=== PATIENT | female | born 1935 | race African-American/Black ===

== ENCOUNTER 2024-03-02 06:42 | Inpatient (IN) | payer OTHER ==
[~2024-03-02] VITALS: Ht 149.9 cm; Wt 61.6 kg
[2024-03-02 07:17] VITALS: PULSE 89; RESP 17; O2SAT 95
[2024-03-02] MEDS: SODIUM CHLORIDE 0.9% 1,000 ML IV ONE (07:30)
[2024-03-02] MEDS: SODIUM CHLORIDE 0.9% 500 ML IVB ONE (08:12)
[2024-03-02 08:22] LABS: Basophils # (auto) 0 10 ^3/uL (0-0.2); Basophils % (auto) 0.6 % (0.0-2.0); Eosinophils # (auto) 0 10 ^3/uL (0-0.8); Eosinophils % (auto) 0.6 % (0.0-7.0); Hematocrit 32.6 % (36.0-46.0); Hemoglobin 11.1 g/dL (12.2-16.2); Lymphocytes # (auto) 0.8 10 ^3/uL (0.4-5.4); Lymphocytes % (auto) 15.3 % (10.0-50.0); Mean Corpuscular Hemoglobin 32.9 pg (28.0-32.0); Mean Corpuscular Hgb Conc. 33.9 g/dL (32.0-36.0); Mean Corpuscular Volume 96.9 fL (80.0-100.0); Monocytes # (auto) 0.5 10 ^3/uL (0-1.3); Monocytes % (auto) 10.1 % (0.0-12.0); Neutrophils % (auto) 73.4 % (37.0-80.0); Red Blood Cells 3.36 10^6/uL (4.0-5.20); Red Cell Distribution Width 14.4 % (11.8-14.3); White Blood Cell 5.4 10^3/uL (4.4-10.8)
[2024-03-02 08:32] LABS: Albumin 3.3 g/dL (3.2-4.8); Alkaline Phosphatase 94 U/L (46-116); Anion Gap 7 (5-15); Aspartate Aminotransferase 17 U/L (13-40); BUN/Creatinine Ratio 16.9 (10.0-20.0); Blood Urea Nitrogen 12 mg/dL (9-23); Calcium 9.4 mg/dL (8.7-10.4); Carbon Dioxide 26 mmol/L (20-30); Chloride 107 mmol/L (98-107); Glucose 84 mg/dL (74-106); Magnesium 1.9 mg/dL (1.6-2.6); Sodium 140 mmol/L (136-145); Total Protein 5.4 g/dL (5.7-8.2)
[2024-03-02 08:35] LABS: Alanine Aminotransferase < 9 U/L (7-40)
[2024-03-02] MEDS: FLEET MINERAL OIL ENEMA 133 ML PR ONE (10:30)
[2024-03-02] MEDS: LORazepam 2MG/ML-1ML VIAL IV ONE ×2 (10:46→14:04)
[2024-03-02 12:08] LABS: Urine Bacteria None Seen /hpf (None Seen)
[2024-03-02 12:24] LABS: Urine Blood Negative /uL (Negative); Urine Clarity Turbid (Clear); Urine Color Colorless (Yellow); Urine Protein, UAD 1+ (Negative); Urine Specific Gravity 1.007 (1.001-1.035); Urine Urobilinogen Normal (Negative); Urine WBC 145 /hpf (0 - 5); Urine WBC Clumps PRESENT /hpf (None Seen)
[2024-03-02] MEDS: cefTRIAXone 1GM/50ML D5W 50 ML IV ONE (14:03)
[2024-03-02] MEDS ORDERED: ACETAMINOPHEN 325 MG TAB PO PRN (15:15)
[2024-03-02] MEDS ORDERED: DOCUSATE SOD 100 MG CAP PO PRN (15:15)
[2024-03-02] MEDS: LACTATED RINGER'S 1,000 ML IV SCH (15:58)
[2024-03-02 20:10] VITALS: PULSE 89; RESP 17; O2SAT 97
[2024-03-02] MEDS: ONDANSETRON HCL 4 MG/2 ML VIAL IV PRN (21:18)
[2024-03-02] MEDS: SENNA 8.6 MG TAB PO ONE (21:18)
[2024-03-02] MEDS: DOCUSATE SOD 100 MG CAP PO ONE (21:19)
[2024-03-02] MEDS: SODIUM CHLOR 0.9% PF (SALINE LOCK) 10ML VIAL/SYR IV SCH (22:25)
[2024-03-03] VITALS (7 sets, daily range): BP systolic 151–164; BP diastolic 80–92; PULSE 68–87; RESP 16–18; TEMP 97.6–98.5; O2SAT 95–99
[2024-03-03] MEDS ORDERED: LORA-483 PO (01:52)
[2024-03-03] MEDS ORDERED: LORA-1121 PO (01:52)
[2024-03-03] MEDS ORDERED: HYDR200T36 PO (01:52)
[2024-03-03] MEDS ORDERED: RISP1TAB63 PO (01:52)
[2024-03-03] MEDS: ENOXAPARIN SOD 40 MG/0.4 ML SYRINGE SC SCH (10:31)
[2024-03-03] MEDS: cefTRIAXone 1GM/50ML D5W 50 ML IV ONE (16:05)
[2024-03-03] MEDS: DOCUSATE SOD 100 MG CAP PO SCH (21:25)
[2024-03-04] VITALS (7 sets, daily range): BP systolic 105–163; BP diastolic 40–104; PULSE 81–100; RESP 16–18; TEMP 98–98.5; O2SAT 94–96
[2024-03-04] MEDS ORDERED: BISACODYL 10 MG RECT SUPP PR PRN (13:30)
[2024-03-04] MEDS: BISACODYL 10 MG RECT SUPP PR ONE (14:05)
[2024-03-04] MEDS: HYDROcodone-ACET 5/325MG TAB PO PRN (20:33)
[2024-03-05] MEDS: TEMAZEPAM 15 MG CAP PO ONE (00:26)
[2024-03-05 08:00] VITALS: PULSE 72; RESP 18; O2SAT 95
[2024-03-05 09:00] VITALS: BP 159/91; PULSE 72; RESP 18; TEMP 97.9; O2SAT 95
[2024-03-05] MEDS ORDERED: BISACODYL 10 MG RECT SUPP PR PRN (10:00)
[2024-03-05] MEDS: HYDROmorphone HCL 2 MG/ML VL/or syr IV PRN (10:31)
[2024-03-05 13:00] VITALS: BP 134/73; PULSE 73; RESP 18; TEMP 97.7; O2SAT 100
[2024-03-05 17:00] VITALS: BP 172/76; PULSE 84; RESP 18; TEMP 98.2; O2SAT 99
[2024-03-05 21:00] VITALS: BP 155/86; PULSE 82; RESP 18; TEMP 98; O2SAT 95
[2024-03-05] MEDS: risperiDONE 1 MG TAB PO SCH (21:38)
[2024-03-06 05:00] VITALS: BP 131/53; PULSE 104; RESP 17; TEMP 97.7; O2SAT 98
[2024-03-06 08:00] VITALS: PULSE 81; RESP 18; O2SAT 100
[2024-03-06 09:00] VITALS: BP 128/61; PULSE 81; RESP 18; TEMP 98; O2SAT 100
[2024-03-06] MEDS: hydrALAZINE HCL 20 MG/ML VL IV PRN (12:18)
[2024-03-06 13:00] VITALS: BP 170/86; PULSE 88; RESP 18; TEMP 99.3; O2SAT 95
[2024-03-06 17:00] VITALS: BP 142/72; PULSE 89; RESP 16; TEMP 98.3; O2SAT 96
[2024-03-06 18:03] VITALS: BP 142/72; PULSE 89; RESP 16; TEMP 98.3; O2SAT 96
== END 2024-03-06 18:20 | DRG 689 ==
LOC: ER 06:42 → EDBD 06:42 → OVERFLOW 15:14 → WEST WING 23:37 → UNDODISIN 03-05 14:00 → WEST WING 03-06 01:46
PROVIDERS: ADMIT Internal Medicine; ATTEND Internal Medicine
DX: N30.00 Acute cystitis without hematuria (principal); G93.41 Metabolic encephalopathy; F02.B11 Dementia in other diseases classified elsewhere, moderate, with agitation; G30.8 Other Alzheimer's disease; K59.00 Constipation, unspecified; Z79.899 Other long term (current) drug therapy; R41.0 Disorientation, unspecified
CPT/HCPCS: 36415; 70450; 71045; 80053; 81001; 83605; 83735; 84443; 84484; 85025; 87040; 87086; 87088; 87186; 93005; 96365; 96375; 97110; 97116; 97163; 97530; G0378; J2405